=== PATIENT | female | born 2000 | race Caucasian/White ===

== ENCOUNTER 2020-06-29 15:13 | Emergency (ER) | payer BC, OTHER ==
[~2020-06-29] VITALS: Ht 162.5 cm; Wt 69.8 kg
--- NOTE | 2020-06-29 15:29 | ED Headache ---
General Chief Complaint: Head/Cervical Problems Stated Complaint: MIGRAINE Source: patient Exam Limitations: no limitations History of Present Illness Date Seen by Provider: Jun 29, 2020 Time Seen by Provider: 15:20 Initial Comments The patient is a pleasant 19-year-old female presents for evaluation of a migraine headache over the last week. She reports the pain is currently a 5 out of 10. She has not been formally diagnosed with migraines but states that she is sensitive to light and sound and has some fibrin dots in her peripheral vision occasionally. And is throbbing in nature and in the back of the head radiating around to the front. She tried some Tylenol and Excedrin with little relief at home. She denies fevers or chills, nausea or vomiting, neck pain or stiffness, recent head injury, dizziness or syncope. She is alert and oriented 4, calm, and appears to be in no distress this time. Timing/Duration: 1 week Severity/Quality: moderate Location: frontal, occipital Prior Headaches/Recent Trauma: no recent headache/trauma, occasional headaches Modifying Factors: improves with exposure to light (makes it worse), improves with rest (makes it better) Associated Symptoms: denies symptoms Allergies and Home Medications Allergies Coded Allergies: No Known Drug Allergies (Unverified , 06/29/20) Patient Home Medication List Home Medication List Reviewed: Yes Review of Systems Review of Systems Constitutional: no symptoms reported Eyes: No Symptoms Reported Ears, Nose, Mouth, Throat: no symptoms reported Respiratory: no symptoms reported Cardiovascular: no symptoms reported Gastrointestinal: no symptoms reported Genitourinary: no symptoms reported Musculoskeletal: no symptoms reported Skin: no symptoms reported Psychiatric/Neurological: Headache All Other Systems Reviewed Negative Unless Noted: Yes Past Turblww-Xokywn-Yevira Hx Past Med/Social Hx: Reviewed Nursing Past Med/Soc Hx Patient Social History Recent Foreign Travel: No Contact w/Someone Who Travel: No Physical Exam Vital Signs Vital Signs - First Documented 06/29/20 15:18 Temp 36.8 Pulse 94 Resp 18 B/P (MAP) 136/78 (97) Pulse Ox 100 O2 Delivery Room Air Capillary Refill : Height, Weight, BMI Height: '" Weight: lbs. oz. kg; BMI Method: General Appearance: WD/WN, no apparent distress HEENT: PERRL/EOMI, normal ENT inspection Neck: non-tender, full range of motion, supple, normal inspection Cardiovascular: regular rate, rhythm, no edema, no JVD Respiratory: lungs clear, normal breath sounds, no respiratory distress, no accessory muscle use Gastrointestinal: normal bowel sounds, non tender, soft, no pulsatile mass Extremities: non-tender, normal inspection, no pedal edema Psychiatric: alert, oriented x 3, depressed affect Crainal Nerves: normal hearing, normal speech, PERRL Coordination/Gait: normal gait Motor/Sensory: no motor deficit, no sensory deficit Skin: normal color, warm/dry Lymphatic: no adenopathy Progress/Results/Core Measures Results/Orders My Orders Orders - COLBY PIERCE DO Ct Head Wo (06/29/20 15:24) Ed Iv/Invasive Line Start (06/29/20 15:24) Metoclopramide Injection (Reglan Injecti (06/29/20 15:45) Diphenhydramine Injection (Benadryl Inje (06/29/20 15:45) Ketorolac Injection (Toradol Injection) (06/29/20 15:45) Ns Iv 1000 Ml (Sodium Chloride 0.9%) (06/29/20 15:45) Urine Bedside (06/29/20 15:31) Medications Given in ED Current Medications Medications Dose Ordered Sig/Joyce Route Start Time Stop Time Status Last Admin Dose Admin Diphenhydramine HCl 25 mg ONCE ONCE IVP 06/29/20 15:45 06/29/20 15:46 DC 06/29/20 15:56 25 MG Ketorolac Tromethamine 30 mg ONCE ONCE IVP 06/29/20 15:45 06/29/20 15:46 DC 06/29/20 15:57 30 MG Metoclopramide HCl 10 mg ONCE ONCE IVP 06/29/20 15:45 06/29/20 15:46 DC 06/29/20 15:57 10 MG Vital Signs/I&O 06/29/20 06/29/20 15:18 15:57 Temp 36.8 36.8 Pulse 94 Resp 18 B/P (MAP) 136/78 (97) Pulse Ox 100 O2 Delivery Room Air Progress Progress Note : Progress Note @1630 - CT unremarkable. No red flags for serious headache etiology identified. Patient states she is feeling much better. Advised Tylenol or ibuprofen as needed for pain at home as well as water to stay well-hydrated. Advised follow- up with PCP in the next 1-2 days and return to the emergency Department immediately for new or worsening symptoms. Workup today fails to reveal any emergent pathology. The patient expresses verbal understanding and agreement with the plan and is stable for discharge. Diagnostic Imaging Diagonstic Imaging: CT Comments [facility] [place], [place] NAME: MIREYA ARMENTA [facility] REC#: [id number] PT STATUS: REG ER : 2000 PHYSICIAN: COLBY PIERCE DO ADMIT DATE: 06/29/20/ER FS Draft Date of Exam:06/29/20 CT HEAD WO INDICATION: Persistent headaches x1 week and photophobia and nausea. TECHNIQUE: Multiple contiguous axial images were obtained through the brain without the use of intravenous contrast. Auto Exposure Controls were utilized during the CT exam to meet ALARA standards for radiation dose reduction. There is no prior study for comparison There are no extra-axial fluid collections. No intracranial hemorrhage. No intracranial mass or mass effect. No midline shift. The ventricles are normal in size and position. There were no focal parenchymal abnormalities in the brain. Calvarial windows were unremarkable. IMPRESSION: Negative noncontrast brain CT. Dictated on workstation # [id number] Dict: 06/29/20 1620 Trans: 06/29/20 1622 [facility] [id number] Interpreted by: TASHI ACUNA MD Electronically signed by: Departure Impression Primary Impression: Migraine Disposition: 01 HOME, SELF-CARE Condition: Stable Departure-Patient Inst. Decision time for Depature: 16:30 [place]: [facility] [place]ructions: Migraine Headache (DC) Add. Discharge Instructions: Follow-up with your doctor in the next 2-3 days. Return to the emergency Departm ent immediately for new or worsening symptoms. COLBY PIERCE DO Jun 29, 2020 15:29
[2020-06-29] MEDS ORDERED: NS IV 1000 ML 1,000 ML IV SCH (15:45)
[2020-06-29] MEDS ORDERED: METOCLOPRAMIDE INJ 10 MG/2 ML (REGLAN) IVP ONE (15:45)
[2020-06-29] MEDS ORDERED: KETOROLAC 30 MG/ML VIAL IVP ONE (15:45)
[2020-06-29] MEDS ORDERED: diphenhydrAMINE 50 MG/ML INJ (BENADRYL) IVP ONE (15:45)
[2020-06-29] MEDS ORDERED: Excedrin (16:20)
[2020-06-29] MEDS ORDERED: BCP (16:20)
[2020-06-29] MEDS ORDERED: Ibuprofen (16:20)
--- NOTE | 2020-06-29 16:23 | Diagnostic Imaging Report ---
INDICATION: Persistent headaches x1 week and photophobia and nausea. TECHNIQUE: Multiple contiguous axial images were obtained through the brain without the use of intravenous contrast. Auto Exposure Controls were utilized during the CT exam to meet ALARA standards for radiation dose reduction. There is no prior study for comparison There are no extra-axial fluid collections. No intracranial hemorrhage. No intracranial mass or mass effect. No midline shift. The ventricles are normal in size and position. There were no focal parenchymal abnormalities in the brain. Calvarial windows were unremarkable. IMPRESSION: Negative noncontrast brain CT. Dictated by: Dictated on workstation # [id number]
[2020-06-29 16:45] VITALS: BP 128/72
== END 2020-06-29 16:45 | disposition home or self-care (01) ==
LOC: ER FS 15:14
DX: G43.909 Migraine, unspecified, not intractable, without status migrainosus (principal)
CPT/HCPCS: 70450; 84703